=== PATIENT | male | born 1975 | race Caucasian/White ===

== ENCOUNTER → 2019-07-13 | Outpatient (CLI) | payer OTHER ==
--- NOTE | 2019-07-13 15:27 | US ---
EXAMINATION TYPE: US extremity nonvasc mass RT DATE OF EXAM: 07/13/2019 COMPARISON: NONE CLINICAL HISTORY: R22.41 Mass Right Lower Limb. Right anterior lower leg palpable x 1 year. Area of concern scanned. Nonvascular solid appearing lesion visualized - 2.3 x 2.2 x 0.8 cm. IMPRESSION: Nonspecific solid mass. Tissue diagnosis recommended.
== END | disposition home or self-care (01) ==
LOC: RADUSWWP 14:57
PROVIDERS: ATTEND Surgery Plastic and Reconstructive Surgery
DX: R22.41 Localized swelling, mass and lump, right lower limb (principal)

== ENCOUNTER → 2019-07-31 | Outpatient (CLI) | payer OTHER ==
[2019-07-31 14:41] LABS: Basophils # (A) 0.1 k/uL (0-0.2); Basophils % (A) 1 %; Eosinophils # (A) 0.2 k/uL (0-0.7); Eosinophils % (A) 2 %; HCT 50.8 % (39.0-53.0); HGB 16.6 gm/dL (13.0-17.5); Lymphocytes # (A) 1.9 k/uL (1.0-4.8); Lymphocytes % (A) 26 %; MCH 30.7 pg (25.0-35.0); MCHC 32.7 g/dL (31.0-37.0); MCV 93.7 fL (80.0-100.0); Mean Platelet Volume 5.4; Monocytes # (A) 0.4 k/uL (0-1.0); Monocytes % (A) 6 %; Neutrophils # (A) 4.5 k/uL (1.3-7.7); Neutrophils % (A) 63 %; Platelet Count 376 k/uL (150-450); RBC 5.42 m/uL (4.30-5.90); RDW 12.8 % (11.5-15.5); WBC 7.2 k/uL (3.8-10.6)
[2019-07-31 20:07] LABS: Albumin 4.5 g/dL (3.80-4.90); Albumin/Globulin Ratio 2.5 (1.60-3.17); Anion Gap 8.5 mmol/L (4.00-12.00); BUN/Creat Ratio 12.22 Ratio (12.00-20.00); Bilirubin, Conjugated 0.2 mg/dL (0.20-0.40); Bilirubin,Unconjugated 0.4 mg/dL; Calcium 9.4 mg/dL (8.7-10.3); Carbon Dioxide 24.5 mmol/L (21.6-31.8); Chol/HDL Ratio 1.92; Globulin 1.8 g/dL (1.6-3.3); Potassium 4.6 mmol/L (3.5-5.5); Total Bilirubin 0.6 mg/dL (0.3-1.2); Total Protein 6.3 g/dL (6.2-8.2)
[2019-07-31 20:16] LABS: T4, Free (Free Thyroxine) 1.2 ng/dL (0.80-1.80)
== END | disposition home or self-care (01) ==
LOC: LABWHC1 14:14
PROVIDERS: ATTEND Family Medicine
DX: Z00.00 Encounter for general adult medical examination without abnormal findings (principal)
CPT/HCPCS: 36415; 80053; 80061; 82248; 84439; 84443; 85025

== ENCOUNTER → 2019-08-03 | Outpatient (CLI) | payer OTHER ==
--- NOTE | 2019-08-03 15:24 | XR ---
EXAMINATION TYPE: XR chest 2V DATE OF EXAM: 08/03/2019 COMPARISON: 10/15/2014 TECHNIQUE: PA and lateral views submitted. HISTORY: Chest pain FINDINGS: The lungs are clear and there is no pneumothorax, pleural effusion, or focal pneumonia. No overt fa ilure. IMPRESSION: 1. No acute process.
== END | disposition home or self-care (01) ==
LOC: LABWHC1 14:31
PROVIDERS: ATTEND Family Medicine
DX: R07.9 Chest pain, unspecified (principal)
CPT/HCPCS: 36415; 71046; 93005

== ENCOUNTER 2019-08-11 07:22 | Day surgery (SDC) | payer OTHER ==
[2019-08-09 10:37] VITALS: BMI 25.0
[~2019-08-11 07:22] MED LIST: DEXAMETHASONE SOD PHOSPHATE 10 MG/ML 1 ML VIAL IV ONE; HEPARIN SODIUM,PORCINE 5,000 UNIT/ML 1 ML VIAL SQ ONE; HYDROmorphone 0.5 MG/0.5 ML SYRINGE IVP PRN; LACTATED RINGERS 1,000 ML IV SCH; LIDOCAINE 1% 20 ML VIAL (10MG/ML) FOR IV START INTRADERMA PRN; ONDANSETRON 4 MG/2 ML VIAL IVP ONE; ONDANSETRON 4 MG/2 ML VIAL IVP PRN; Pre Op ABX Message 1 EACH MISC MISCELLANE ONE
--- NOTE | 2019-08-11 07:37 | P.GSHP ---
History of Present Illness H&P Date: 08/11/19 CHIEF COMPLAINT: Painful lesions along the right lower leg HISTORY OF PRESENT ILLNESS: The patient is a 44 year-old male with history of lesion along the right lower leg, pretibial. He presents today for surgical excision. PAST MEDICAL HISTORY: Please see list. PAST SURGICAL HISTORY: Please see list. MEDICATIONS: Please see list. ALLERGIES: Please see list. SOCIAL HISTORY: Please see list. FAMILY HISTORY: Please see list. REVIEW OF ORGAN SYSTEMS: CONSTITUTIONAL: No reports of fevers or chills. GI: Denies any blood in stools or constipation. PHYSICAL EXAM: VITAL SIGNS: Stable Musculoskeletal: Approximately 3 cm lipomas, superficial, along the right pretibial leg GENERAL: Well developed and in no acute distress. Pleasant. HEENT: No sclera icterus. Extraocular movements grossly intact. Moist buccal mucosa. Head is atraumatic, normocephalic. Hears conversational speech. No nasal drainage. NECK: Supple without lymphadenopathy. No JV distention. CHEST: Non-labored respirations and equal bilateral excursions. CARDIOVASCULAR: Regular rate and rhythm. Palpable 2+ radial pulses. ABDOMEN: Soft. Non-tender. Nondistended. NEUROLOGIC: No focal or lateralizing signs. PSYCH: Appropriate affect. Alert and oriented to person, place and time. ASSESSMENT: 1. Lipomas right pretibial leg PLAN: 1. Will proceed of excision of subcutaneous tumors along the right pretibial leg 2. DVT prophylaxis. 3. Antibiotic prophylaxis. 4. Time of recovery, at least one week. Past Medical History Past Medical History: No Reported History History of Any Multi-Drug Resistant Organisms: None Reported Past Surgical History: Bladder Surgery Additional Past Surgical History / Comment(s): kidney Past Anesthesia/Blood Transfusion Reactions: No Reported Reaction Smoking Status: Current every day smoker - Past Family History Mother Family Medical History: No Reported History Medications and Allergies Home Medications Medication Instructions Recorded Confirmed Type HYDROcodone/APAP 10-325MG [[place] 1 tab PO Q6HR PRN 08/09/19 08/09/19 History 10-325] Allergies Allergy/AdvReac Type Severity Reaction Status Date / Time Penicillins AdvReac Abdominal Verified 08/09/19 10:32 Pain
[2019-08-11 07:40] VITALS: RESP 16; TEMP 97.2
[2019-08-11] MEDS ORDERED: KETAMINE 10 MG/ML 20 ML VIAL ONE (08:25)
[2019-08-11] MEDS ORDERED: LIDOCAINE 1% INJ 10MG/ML (20 ML MDV) ONE (08:25)
[2019-08-11] MEDS ORDERED: fentaNYL (PF) 50 MCG/ML 2 ML AMP ONE (08:25)
[2019-08-11] MEDS ORDERED: MIDAZOLAM 2 MG/2 ML VIAL ONE (08:25)
[2019-08-11] MEDS ORDERED: KETOROLAC 30 MG/ML 1 ML VIAL ONE (08:25)
[2019-08-11] MEDS ORDERED: PROPOFOL 10 MG/ML 20 ML VIAL IV ONE (08:25)
[2019-08-11] MEDS ORDERED: LIDOCAINE 1%-EPI 1:100,000 20 ML VIAL SQ ONE (08:49)
--- NOTE | 2019-08-11 09:18 | P.OP ---
Date of Procedure: 08/11/19 Description of Procedure: SURGEON: KEYANA QUIGLEY MD CTO: NONE. PREOPERATIVE DIAGNOSES: 1. Right lower leg pre-tibial tumor, subcutaneous POSTOPERATIVE DIAGNOSES: 1. Right lower leg pre-tibial tumor, subcutaneous 3 cm OPERATION: 1. Excision of right lower leg pre-tibial tumor, subcutaneous 3 cm. 2. Intermediate closure of right lower leg incision, 3 cm. ANESTHESIA: MAC with local ESTIMATED BLOOD LOSS: 1 mL. SPECIMENS REMOVED: 1. Right lower leg subcutaneous tumor COMPLICATIONS: None. INDICATIONS: The patient is a 44-year-old male who presents with right lower leg subcutaneous tumor. Surgical options, including excision was discussed. Benefits and risks were described. Informed consent was obtained. DESCRIPTION OF PROCEDURE: Patient was brought into the operating room, laid in left lateral decubitus position. After adequate IV sedation, the right lower leg was prepped and draped in standard sterile fashion using ChloraPrep. A timeout protocol was confirmed with the surgical team regarding patient's name including procedures to be performed. Preoperative medications was administered. Next, a local field block was administered. The right lower leg mass was measured using a ruler with borders marked with indelible marker. An incision of 3 cm in size was made into the dermis followed by blunt and circumferential dissection using electro-Bovie cautery into the subcutaneous tissue. Hemostasis was checked with electrocautery cautery. A ruptured sebaceous cyst was cultured and removed with its shell. The wound was closed in layers. 3-0 Vicryl was placed interrupted along the deep dermis. The skin was closed using 4-0 Monocryl. Exofin tape including liquid glue and tape was used as the final layer. The skin was cleansed. Optifoam dressing was placed. At the end of the procedure, needle, sponge, and instrument count had been verified correct by the surgical corsetier. The patient was taken to the postanesthesia care unit in stable condition. FINDINGS: 1. Right leg mass excision, pre-tibial, 3 cm subcutaneous tissue, ruptured sebaceous cyst. Plan - Discharge Summary Discharge Rx Participant: Yes New Discharge Prescriptions: New Ibuprofen [Motrin] 600 mg PO Q8HR PRN #30 tab PRN Reason: Pain Acetaminophen Tab [Tylenol Tab] 500 mg PO Q6H PRN #30 tablet PRN Reason: Pain No Action HYDROcodone/APAP 10-325MG [[place] 10-325] 1 tab PO Q6HR PRN PRN Reason: Pain Discharge Medication List HYDROcodone/APAP 10-325MG [[place] 10-325] 1 tab PO Q6HR PRN 08/09/19 [History] Acetaminophen Tab [Tylenol Tab] 500 mg PO Q6H PRN #30 tablet 08/11/19 [Rx] Ibuprofen [Motrin] 600 mg PO Q8HR PRN #30 tab 08/11/19 [Rx] Follow up Appointment(s)/Referral(s): Keyana Quigley MD [STAFF PHYSICIAN] - 08/29/19 Patient Instructions/Handouts: Excision of Skin Lesion (DC) Activity/Diet/Wound Care/Special Instructions: May shower. No bathtub soaks until 08/30/2019. May remove external dressing on 08/16/19. DO NOT REMOVE TAPE FROM SKIN.
[2019-08-11 09:29] VITALS: BP 122/79; PULSE 78
== END 2019-08-11 09:50 | disposition home or self-care (01) ==
LOC: OR 07:22
PROVIDERS: ATTEND Surgery Plastic and Reconstructive Surgery
DX: L72.0 Epidermal cyst (principal); F17.200 Nicotine dependence, unspecified, uncomplicated; Z98.890 Other specified postprocedural states; Z88.0 Allergy status to penicillin
CPT/HCPCS: 88304; 87070; 87205; 87075; 11403; 12032; J2250; J1100; J0690; J2405; J2001; J3010; J1885; J2704

== ENCOUNTER 2020-07-02 23:07 | Emergency (ER) | payer OTHER ==
[2020-07-02] MEDS ORDERED: ORPHENADRINE 30 MG/ML 2 ML VIAL IM STA (23:47)
[2020-07-02] MEDS ORDERED: LIDOCAINE 5% PATCH TOPICAL STA (23:47)
--- NOTE | 2020-07-02 23:51 | ED ---
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 He doesn't recall any specific straining or injury however for the past week or so he's been having pain from his axilla down the side of his ribs. The pain seems to be worse with movement and occasionally worse with deep breathing. He denies any fevers, chills or shortness of breath. Denies any exertional chest pain or left-sided chest pain. Denies any cardiac history. Mother does have a history of DVT that was provoked by surgery. No other family history of clots that he is aware of. - Related Data Home Medications Medication Instructions Recorded Confirmed HYDROcodone/APAP 10-325MG [[place] 1 tab PO Q6HR PRN 08/09/19 08/11/19 10-325] Previous Rx's Medication Instructions Recorded Acetaminophen Tab [Tylenol Tab] 500 mg PO Q6H PRN #30 tablet 08/11/19 Ibuprofen [Motrin] 600 mg PO Q8HR PRN #30 tab 08/11/19 Lidocaine 5% Patch [Lidoderm] 1 patch TOPICAL DAILY #30 patch 07/03/20 Orphenadrine [Norflex] 100 mg PO Q12H #30 tablet.er 07/03/20 Allergies Allergy/AdvReac Type Severity Reaction Status Date / Time Penicillins AdvReac Abdominal Verified 07/02/20 23:13 Pain Review of Systems ROS Statement: Those systems with pertinent positive or pertinent negative responses have been documented in the HPI. ROS Other: All systems not noted in ROS Statement are negative. Past Medical History Past Medical History: No Reported History History of Any Multi-Drug Resistant Organisms: None Reported Past Surgical History: Bladder Surgery Additional Past Surgical History / Comment(s): kidney, Past Anesthesia/Blood Transfusion Reactions: No Reported Reaction Past Psychological History: No Psychological Hx Reported Smoking Status: Current every day smoker Past Alcohol Use History: Daily Past Drug Use History: None Reported - Past Family History Mother Family Medical History: No Reported History General Exam - General Exam Comments Initial Comments: Physical Exam GENERAL: Patient is well-developed and well-nourished. Patient is nontoxic and well-hydrated and is in no distress. HENT: Normocephalic, Atraumatic. EYES: PERRL, EOMI PULMONARY: Unlabored respirations. No audible rales rhonchi or wheezing was noted. CARDIOVASCULAR: There is a regular rate and rhythm without any murmurs gallops or rubs. ABDOMEN: Soft and nontender with normal bowel sounds. SKIN: Skin is clear with no lesions or rashes and otherwise unremarkable. : Deferred NEUROLOGIC: Patient is alert and oriented x3. Moving all extremities spontaneously MUSCULOSKELETAL: Normal extremities with adequate strength and full range of motion. No lower extremity swelling or edema. No calf tenderness. PSYCHIATRIC: Normal psychiatric evaluation. Limitations: no limitations Course Vital Signs 07/02/20 23:09 Temperature 99.2 F Pulse Rate 103 H Respiratory 17 Rate Blood Pressure 170/97 O2 Sat by Pulse 99 Oximetry Medical Decision Making - Medical Decision Making The patient was seen and evaluated history is obtained from patient History and physical exam are concerning for a muscular skeletal source of discomfort Patient will be treated symptomatically, patient had chest x-ray and received Norflex and I did term. Upon reevaluation patient reports minimal improvement and states he doesn't feel comfortable not receiving full workup. Blood work was obtained CBC CMP troponin and d-dimer had no abnormalities noted These results were discussed with patient expresses relief at this time patient is comfortable with plan for discharge home supportive care - Lab Data Result diagrams: 07/03/20 00:45 07/03/20 00:45 Lab Results 07/03/20 07/03/20 07/03/20 Range/Units 00:45 00:45 00:45 WBC 7.7 (3.8-10.6) k/uL RBC 5.54 (4.30-5.90) m/uL Hgb 16.5 (13.0-17.5) gm/dL Hct 52.1 (39.0-53.0) % MCV 94.0 (80.0-100.0) fL MCH 29.8 (25.0-35.0) pg MCHC 31.7 (31.0-37.0) g/dL RDW 13.0 (11.5-15.5) % Plt Count 369 (150-450) k/uL Neutrophils % 70 % Lymphocytes % 21 % Monocytes % 5 % Eosinophils % 1 % Basophils % 1 % Neutrophils # 5.4 (1.3-7.7) k/uL Lymphocytes # 1.6 (1.0-4.8) k/uL Monocytes # 0.4 (0-1.0) k/uL Eosinophils # 0.1 (0-0.7) k/uL Basophils # 0.1 (0-0.2) k/uL PT 9.5 (9.0-12.0) sec INR 0.9 (<1.2) APTT 24.6 (22.0-30.0) sec D-Dimer <0.17 (<0.60) mg/L FEU Sodium 137 (137-145) mmol/L Potassium 4.3 (3.5-5.1) mmol/L Chloride 107 (98-107) mmol/L Carbon Dioxide 23 (22-30) mmol/L Anion Gap 7 mmol/L BUN 10 (9-20) mg/dL Creatinine 0.83 (0.66-1.25) mg/dL Est GFR (CKD-EPI)AfAm >90 (>60 ml/min/1.73 sqM) Est GFR (CKD-EPI)NonAf >90 (>60 ml/min/1.73 sqM) Glucose 96 (74-99) mg/dL Calcium 9.9 (8.4-10.2) mg/dL Magnesium 2.1 (1.6-2.3) mg/dL Total Bilirubin 0.3 (0.2-1.3) mg/dL AST 35 (17-59) U/L ALT 34 (4-49) U/L Alkaline Phosphatase 68 (38-126) U/L Troponin I (0.000-0.034) ng/mL Total Protein 6.6 (6.3-8.2) g/dL Albumin 4.1 (3.5-5.0) g/dL 07/03/20 Range/Units 00:45 WBC (3.8-10.6) k/uL RBC (4.30-5.90) m/uL Hgb (13.0-17.5) gm/dL Hct (39.0-53.0) % MCV (80.0-100.0) fL MCH (25.0-35.0) pg MCHC (31.0-37.0) g/dL RDW (11.5-15.5) % Plt Count (150-450) k/uL Neutrophils % % Lymphocytes % % Monocytes % % Eosinophils % % Basophils % % Neutrophils # (1.3-7.7) k/uL Lymphocytes # (1.0-4.8) k/uL Monocytes # (0-1.0) k/uL Eosinophils # (0-0.7) k/uL Basophils # (0-0.2) k/uL PT (9.0-12.0) sec INR (<1.2) APTT (22.0-30.0) sec D-Dimer (<0.60) mg/L FEU Sodium (137-145) mmol/L Potassium (3.5-5.1) mmol/L Chloride (98-107) mmol/L Carbon Dioxide (22-30) mmol/L Anion Gap mmol/L BUN (9-20) mg/dL Creatinine (0.66-1.25) mg/dL Est GFR (CKD-EPI)AfAm (>60 ml/min/1.73 sqM) Est GFR (CKD-EPI)NonAf (>60 ml/min/1.73 sqM) Glucose (74-99) mg/dL Calcium (8.4-10.2) mg/dL Magnesium (1.6-2.3) mg/dL Total Bilirubin (0.2-1.3) mg/dL AST (17-59) U/L ALT (4-49) U/L Alkaline Phosphatase (38-126) U/L Troponin I <0.012 (0.000-0.034) ng/mL Total Protein (6.3-8.2) g/dL Albumin (3.5-5.0) g/dL Disposition Clinical Impression: Rib pain Disposition: HOME SELF-CARE Condition: Stable Additional Instructions: As we discussed chest xray shows no signs of pneumonia or collapsed lung, I suspect your comfort is due to a strained muscle I recommend avoidance of heavy lifting, use the lidocaine patch and take Motrin as needed when you're work He can take muscle relaxers when you're home however they can be somewhat sedating so I do not recommend he take it before driving or going to work Follow-up with her primary care doctor in the next week for reevaluation Return to the ER if he have any worsening of her condition Prescriptions: Lidocaine 5% Patch [Lidoderm] 1 patch TOPICAL DAILY #30 patch Orphenadrine [Norflex] 100 mg PO Q12H #30 tablet.er Is patient prescribed a controlled substance at d/c from ED?: No Referrals: Jason Sarabia Jr, DO [Primary Care Provider] - 1-2 days
--- NOTE | 2020-07-03 00:09 | XR ---
EXAMINATION TYPE: XR ribs RT w pa chest xray DATE OF EXAM: 07/03/2020 COMPARISON: Chest x-ray 08/03/2019 HISTORY: Right-sided rib pain TECHNIQUE: 5 views FINDINGS: Heart is normal. Lungs are clear of infiltrate. The right ribs appear intact. There is no e vidence of rib fracture. There is no pleural effusion or pneumothorax. IMPRESSION: Normal chest. Normal right ribs.
[2020-07-03 00:56] LABS: Basophils # (A) 0.1 k/uL (0-0.2); Basophils % (A) 1 %; Eosinophils # (A) 0.1 k/uL (0-0.7); Eosinophils % (A) 1 %; HCT 52.1 % (39.0-53.0); HGB 16.5 gm/dL (13.0-17.5); Lymphocytes # (A) 1.6 k/uL (1.0-4.8); Lymphocytes % (A) 21 %; MCH 29.8 pg (25.0-35.0); MCHC 31.7 g/dL (31.0-37.0); Mean Platelet Volume 6.3; Monocytes # (A) 0.4 k/uL (0-1.0); Monocytes % (A) 5 %; Neutrophils # (A) 5.4 k/uL (1.3-7.7); Neutrophils % (A) 70 %; Platelet Count 369 k/uL (150-450); RBC 5.54 m/uL (4.30-5.90); WBC 7.7 k/uL (3.8-10.6)
[2020-07-03 01:07] LABS: ALT 34 U/L (4-49); AST 35 U/L (17-59); African American GFR (CKD) >90 (>60 ml/min/1.73 sqM); Albumin 4.1 g/dL (3.5-5.0); Alkaline Phosphatase 68 U/L (38-126); Anion Gap 7 mmol/L; Blood Urea Nitrogen 10 mg/dL (9-20); Calcium 9.9 mg/dL (8.4-10.2); Carbon Dioxide 23 mmol/L (22-30); Chloride 107 mmol/L (98-107); Glucose 96 mg/dL (74-99); Magnesium 2.1 mg/dL (1.6-2.3); Non-African American GFR(CKD) >90 (>60 ml/min/1.73 sqM); Potassium 4.3 mmol/L (3.5-5.1); Sodium 137 mmol/L (137-145); Total Bilirubin 0.3 mg/dL (0.2-1.3); Total Protein 6.6 g/dL (6.3-8.2)
[2020-07-03 01:10] LABS: D-Dimer <0.17 mg/L FEU (<0.60); INR 0.9 (<1.2); Partial Thromboplastin Time 24.6 sec (22.0-30.0); Prothrombin Time 9.5 sec (9.0-12.0)
[2020-07-03 02:17] VITALS: BP 127/91; PULSE 74; RESP 18; TEMP 97.9
== END 2020-07-03 02:16 | disposition home or self-care (01) ==
LOC: EC 23:07
DX: R07.81 Pleurodynia (principal); F17.200 Nicotine dependence, unspecified, uncomplicated; Z88.0 Allergy status to penicillin; X50.0XXA Overexertion from strenuous movement or load, initial encounter; Y99.0 Civilian activity done for income or pay; Y92.69 Other specified industrial and construction area as the place of occurrence of the external cause
CPT/HCPCS: 36415; 85379; 80053; 83735; 84484; 85025; 85610; 85730; 71101; 99285; 96372; J2360